=== PATIENT | male | born 1990 | race Caucasian/White ===

== ENCOUNTER 2021-04-25 00:19 | Emergency (ER) | payer OTHER ==
[~2021-04-25] VITALS: Ht 172.7 cm; Wt 78.0 kg
[2021-04-25 00:20] VITALS: BP 155/98
--- NOTE | 2021-04-25 00:35 | NUR ---
xray at bedside
[2021-04-25] MEDS ORDERED: IBUPROFEN 400 MG TABLET ONE (00:37)
[2021-04-25] MEDS ORDERED: IBUPROFEN 400 MG TABLET PO ONE (01:00)
[2021-04-25] MEDS ORDERED: CLIN300C12 PO (01:06)
[2021-04-25] MEDS ORDERED: CLINDAMYCIN HCL 150 MG CAPSULE PO ONE ×2 (01:11→01:30)
--- NOTE | 2021-04-25 01:31 | NUR ---
PATIENT IS NOW IN CUSTODY OF [facility].
[2021-04-26] MEDS ORDERED: CLIN300C12 PO (19:25)
== END 2021-04-25 01:43 ==
LOC: ER 00:21
DX: S20.212A Contusion of left front wall of thorax, initial encounter (principal); L02.413 Cutaneous abscess of right upper limb; Z88.2 Allergy status to sulfonamides; Z88.6 Allergy status to analgesic agent; Z79.899 Other long term (current) drug therapy; V49.49XA Driver injured in collision with other motor vehicles in traffic accident, initial encounter; Y93.89 Activity, other specified; Y92.488 Other paved roadways as the place of occurrence of the external cause; Y99.8 Other external cause status
CPT/HCPCS: 71045-TC

== ENCOUNTER 2021-04-26 15:57 | Emergency (ER) | payer OTHER ==
[~2021-04-26] VITALS: Ht 170.2 cm; Wt 79.4 kg
[~2021-04-26 15:57] MED LIST: CLIN300C12 PO
--- NOTE | 2021-04-26 15:57 | NUR ---
PT BIB [employer] C/O R FORE ARM ABSCESS FOR 7 DAYS. PT IS AAOX4, NOT IN RESPIRATORY DISTRESS, HOOKED TO LENS GENERATOR, KEPT RESTED AND COMFORTABLE. WILL CONTINUE TO MONITOR.
--- NOTE | 2021-04-26 16:12 | NUR ---
SEEN AND EXAMINED BY SHANNON MEZA NP.
[2021-04-26] MEDS ORDERED: LIDOCAINE 1%-EPI 1:100,000 20 ML VIAL ONE (16:17)
[2021-04-26] MEDS ORDERED: LIDOCAINE 1%-EPI 1:100,000 50 ML VIAL IJ ONE (16:30)
--- NOTE | 2021-04-26 16:35 | NUR ---
SHANNON MEZA NP AT BEDSIDE FOR I&D.
[2021-04-26] MEDS ORDERED: CLINDAMYCIN 600 MG in IV D5W 100 ML IV ONE (17:00)
[2021-04-26] MEDS ORDERED: ONDANSETRON HCL/PF 4 MG/2 ML VIAL IVP ONE (17:00)
[2021-04-26] MEDS ORDERED: IV NS 0.9% 1,000 ML BAG IV ONE (17:00)
--- NOTE | 2021-04-26 17:00 | NUR ---
IV LINE ESTABLISHED BY SHANNON MEZA NP. BLOOD DRAWN AND SENT TO LAB.
[2021-04-26] MEDS ORDERED: ONDANSETRON HCL/PF 4 MG/2 ML VIAL ONE (17:09)
[2021-04-26 17:13] LABS: BASOPHILS # (AUTO) 0.2 /CMM (0.0-0.2); BASOPHILS % (AUTO) 1.2 % (0.0-2.0); EOSINOPHILS % (AUTO) 0.2 % (0.0-6.0); HEMATOCRIT 41 % (39-51); HEMOGLOBIN 13.5 g/dL (13.5-17.5); LYMPHOCYTES # (AUTO) 1.9 /CMM (0.8-4.8); LYMPHOCYTES % (AUTO) 15.2 % (20.0-44.0); MEAN CORPUSCULAR HGB CONC 33 g/dl (31.0-36.0); MEAN CORPUSCULAR VOLUME 87 fL (80-96); MONOCYTES # (AUTO) 0.8 /CMM (0.1-1.30); MONOCYTES % (AUTO) 6.5 % (2.0-12.0); NEUTROPHILS # (AUTO) 9.6 /CMM (1.8-8.9); NEUTROPHILS % (AUTO) 76.9 % (43.0-81.0); PLATELET COUNT (AUTO) 414 /CMM (150-450); WHITE BLOOD COUNT (AUTO) 12.5 K/uL (4.3-11.0)
[2021-04-26 17:33] LABS: ALANINE AMINOTRANSFERASE 74 U/L (12-78); ALBUMIN 2.9 g/dL (3.4-5.0); ALKALINE PHOSPHATASE 109 U/L (46-116); ASPARTATE AMINOTRANSFERASE 46 U/L (15-37); BILIRUBIN,DIRECT 0.2 mg/dL (0.0-0.2); BILIRUBIN,TOTAL 0.7 mg/dL (0.2-1.0); CALCIUM, SERUM 9.3 mg/dL (8.5-10.1); CARBON DIOXIDE 27 mmol/L (21-32); CHLORIDE 93 mmol/L (98-107); CREATININE 0.9 mg/dL (0.6-1.3); POTASSIUM 4.1 mmol/L (3.5-5.1); SODIUM SERUM 129 mmol/L (136-145); TOTAL PROTEIN, SERUM 6.9 g/dL (6.4-8.2); UREA NITROGEN, BLOOD 12 mg/dL (7-18)
[2021-04-26 17:42] LABS: GLUCOSE 421 mg/dL (74-106)
[2021-04-26] MEDS ORDERED: INSULIN REGULAR, HUMAN 100 UNIT/ML 10 ML VIAL SQ ONE (18:00)
[2021-04-26] MEDS ORDERED: INSULIN REGULAR, HUMAN 100 UNIT/ML 10 ML VIAL ONE (18:00)
[2021-04-26 18:05] LABS: BILIRUBIN,URINE Negative (NEGATIVE); COLOR,URINE LIGHT YELLOW (YELLOW); LEUKOCYTE ESTERASE ,URINE Negative (NEGATIVE); NITRITE, URINE Negative (NEGATIVE); PROTEIN,URINE Negative (NEGATIVE); UGLUCOSE >=1000 mg/dL (NEGATIVE); UROBILINOGEN,URINE 0.2 EU/dL (0.2)
[2021-04-26 18:15] LABS: BACTERIA,URINE Few /HPF (None Seen); RBC,URINE 0-2 /HPF (0-2); SQUAMOUS EPITHELIAL CELL,UR None Seen /HPF (None Seen); WBC,URINE 0-2 /HPF (0-3)
--- NOTE | 2021-04-26 19:11 | NUR ---
Henri valenzuela in [facility] - 04/26/21 at 1926 by ANDREW URINE COLLECTED, SENT TO LAB.
[2021-04-26] MEDS ORDERED: CLIN300C12 PO (19:25)
--- NOTE | 2021-04-26 19:33 | NUR ---
IV removed. Catheter intact and site benign. Pressure and 4x4 applied to site. No bleeding noted. Pt discharged, In custody.
[2021-04-26 19:34] VITALS: BP 125/73
== END 2021-04-26 19:43 ==
LOC: ER 15:59
DX: L02.413 Cutaneous abscess of right upper limb (principal); E10.65 Type 1 diabetes mellitus with hyperglycemia; R94.31 Abnormal electrocardiogram [ECG] [EKG]; F17.200 Nicotine dependence, unspecified, uncomplicated; Z88.2 Allergy status to sulfonamides; Z88.1 Allergy status to other antibiotic agents
CPT/HCPCS: 10060; 36415; 71045; 80048; 80076; 81001; 82010; 82962; 83605; 84145; 84484; 85025; 85730; 87040 ×2; 87086; 93005; 96365; 96372; 96375; 99285; A6403; J1815; J2405; J3490 ×3; J7030; J7060